=== PATIENT | male | born 1955 | race Caucasian/White ===

== ENCOUNTER 2018-03-03 22:46 | Emergency (ER) | payer OTHER ==
[~2018-03-03] VITALS: Ht 180.3 cm; Wt 97.2 kg
[~2018-03-03 22:46] MED LIST: BACTRIM,SEPT1 TABLET PO; HYDROCODON-ACE1 EAC7 PO; KEFLEX500 MG PO
[2018-03-03 23:17] LABS: HEMATOCRIT 39.8 % (38.0-50.0); HEMOGLOBIN 13.6 G/DL (12.5-16.6); MCH 29.6 PG (29.0-34.0); MCHC 34.2 G/DL (30.0-36.0); MCV 86.5 FL (86-99); PLATELET COUNT 197 K/uL (156-360); RBC DIS.WIDTH-CV 12.5 % (11.8-14.6); RBC DIS.WIDTH-SD 39.4 % (39-53); WHITE BLOOD COUNT 10.1 K/uL (4.1-10.2)
[2018-03-03 23:26] LABS: CHLORIDE 105 mEq/L (99-109); POTASSIUM 4.3 mEq/L (3.7-5.4); SODIUM 138 mEq/L (136-147)
[2018-03-03 23:28] LABS: GLUCOSE 108 mg/dL (70-99)
[2018-03-03 23:32] LABS: CREATININE 1.2 mg/dL (0.6-1.3); GFR ESTIMATE (CALCULATED) > 59 mL/min/ (58.99-99999)
[2018-03-03 23:33] LABS: UREA NITROGEN (BUN) 21 mg/dL (9-23)
[2018-03-04 00:30] LABS: APPEARANCE CLEAR ((CLEAR)); BILIRUBIN NEGATIVE; BLOOD SMALL; COLOR STRAW ((YELLOW)); GLUCOSE (STRIP) NEGATIVE; KETONES NEGATIVE; LEUKOCYTES NEGATIVE; NITRITE NEGATIVE; PROTEIN (STRIP) NEGATIVE; UROBILINOGEN 0.2 MG/DL (0.2-1.0)
[2018-03-04 00:36] LABS: BACTERIA NONE SEEN /HPF; EPITHELIAL CELLS NONE SEEN /HPF; MUCUS TRACE /LPF; RED BLOOD CELLS 0-5 /HPF (0-5); UCUL ADDED? NO; WHITE BLOOD CELLS 0-5 /HPF (0-5)
[2018-03-04] MEDS ORDERED: CIPRO500 MG PO (03:02)
[2018-03-04] MEDS ORDERED: NORCO 10/3251 TABLET PO (03:02)
[2018-03-04 03:28] VITALS: BP 138/77
== END 2018-03-04 03:29 | disposition home or self-care (01) ==
LOC: EME 22:46
DX: N13.2 Hydronephrosis with renal and ureteral calculous obstruction (principal)
CPT/HCPCS: 74176; 80048; 81003; 85027; 99281; 99284

== ENCOUNTER → 2018-03-06 | Outpatient (CLI) | payer OTHER ==
[~2018-03-06] MED LIST changes: +CIPRO500 MG PO; +NORCO 10/3251 TABLET PO
== END | disposition home or self-care (01) ==
LOC: CDC 14:19
DX: Z01.810 Encounter for preprocedural cardiovascular examination (principal); N20.1 Calculus of ureter; R94.31 Abnormal electrocardiogram [ECG] [EKG]
CPT/HCPCS: 93000

== ENCOUNTER 2018-03-16 09:58 | Day surgery (SDC) | payer OTHER ==
[~2018-03-16] VITALS: Ht 180.3 cm; Wt 95.3 kg
[~2018-03-16 09:58] MED LIST changes: +CELEBREX100 MG PO; +DAILY VALUE1 EACH PO; +DILAUDID2 MG PO; +FISH OIL 1,0001 EAC7 PO; +FLOMAX0.4 MG PO; +TUMERIC PO
[2018-03-16 10:35] VITALS: BP 130/76
[2018-03-16 12:38] VITALS: BP 143/70
[2018-03-16 13:06] VITALS: BP 143/70
[2018-03-16 13:11] VITALS: BP 135/80
== END 2018-03-16 13:14 | disposition home or self-care (01) ==
LOC: SDC 09:58
DX: N20.1 Calculus of ureter (principal); N35.8 Other urethral stricture; Z96.651 Presence of right artificial knee joint
CPT/HCPCS: 87641; C1769; C2625; J0330; J1580; J2250; J2405; J3010; J7050

== ENCOUNTER 2018-03-21 18:45 | Emergency (ER) | payer OTHER ==
[~2018-03-21] VITALS: Ht 180.3 cm; Wt 92.3 kg
[2018-03-21] MEDS ORDERED: AUGMENTIN875 MG PO (21:03)
[2018-03-21 21:11] VITALS: BP 134/94
== END 2018-03-21 21:12 | disposition home or self-care (01) ==
LOC: EME 18:45
PROC: 0CQ0XZZ Repair Upper Lip, External Approach (ICD-10-PCS; principal; 2018-03-21)
DX: S01.511A Laceration without foreign body of lip, initial encounter (principal); W21.12XA Struck by tennis racquet, initial encounter
CPT/HCPCS: 99281; 99284